=== PATIENT | female | born 1955 | race Two or more races ===

== ENCOUNTER 2018-11-25 09:08 | Emergency (ER) | payer MEDICAID, OTHER, SELFPAY ==
[~2018-11-25] VITALS: Ht 154.9 cm; Wt 70.0 kg
--- NOTE | 2018-11-25 09:29 | NUR ---
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
--- NOTE | 2018-11-25 09:48 | NUR ---
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
[2018-11-25] MEDS ORDERED: FLUORESCEIN OPHTHALMIC 1 MG STRIP ONE (10:25)
[2018-11-25] MEDS ORDERED: PROPARACAINE OPHTH 0.5%, 15ML ONE (10:25)
[2018-11-25] MEDS ORDERED: PROPARACAINE OPHTH 0.5%, 15ML EACHEYE ONE (10:30)
[2018-11-25] MEDS ORDERED: FLUORESCEIN OPHTHALMIC 1 MG STRIP EACHEYE ONE (10:30)
--- NOTE | 2018-11-25 11:03 | NUR ---
PT. IS A & O X 4, WITH C/O A RIGHT EYE MASS AND LUMPS ON THE BACK OF HER HEAD. PT. HAS HEAD LICE PRESENT. PT.'S R EYE HAS A CHALAZION. PT. HAS NO OTHER CONCERNS. VSS. PT. IS RESTING WITH THE HOB ELEVATED GREATER THAN 30 DEGREES.
--- NOTE | 2018-11-25 11:41 | NUR ---
PT. WAS GIVEN DISCHARGE INSTRUCTIONS AND SCRIPTS WITH UNDERSTANDING VERBALIZED ALONG WITH WILLINGNESS TO COMPLY. PT. WAS AMBULATORY TO THE DISCHARGE DESK, STEADY GAIT.
[2018-11-25 11:42] VITALS: BP 121/72
== END 2018-11-25 11:48 | disposition home or self-care (01) ==
LOC: ED 11:42
DX: H00.012 Hordeolum externum right lower eyelid (principal); B85.0 Pediculosis due to Pediculus humanus capitis
CPT/HCPCS: 99282